=== PATIENT | male | born 1995 | race African-American/Black ===

== ENCOUNTER 2018-07-31 18:35 | Emergency (ER) | payer BC ==
[~2018-07-31] VITALS: Ht 177.8 cm; Wt 84.1 kg
[2018-07-31] MEDS ORDERED: IBUPROFEN 200 MG TABLET ONE (18:58)
[2018-07-31] MEDS ORDERED: DEXAMETHASONE 4 MG TABLET ONE (18:58)
[2018-07-31] MEDS ORDERED: DEXAMETHASONE 4 MG TABLET PO STA (19:02)
[2018-07-31] MEDS ORDERED: IBUPROFEN 800 MG TABLET PO STA (19:02)
== END 2018-07-31 19:47 | disposition home or self-care (01) ==
LOC: ED 19:41
DX: J20.8 Acute bronchitis due to other specified organisms (principal); J02.8 Acute pharyngitis due to other specified organisms; B34.9 Viral infection, unspecified
CPT/HCPCS: 87081; 87880; 99283